=== PATIENT | female | born 2000 | race African-American/Black ===

== ENCOUNTER 2020-10-21 21:06 | Emergency (ER) | payer BC, MEDICAID ==
[2020-10-21] MEDS ORDERED: Ibuprofen 800 MG TAB ONE (21:43)
[2020-10-21] MEDS ORDERED: Dexamethasone 10 MG/ML VIAL ONE (22:49)
== END 2020-10-21 22:54 | disposition home or self-care (01) ==
LOC: ERS 21:06
DX: J02.9 Acute pharyngitis, unspecified (principal)
CPT/HCPCS: 87081; 87430; 99283; J1100